=== PATIENT | male | born 1955 | race Hispanic/Latino ===

== ENCOUNTER 2020-11-05 16:13 | Inpatient (IN) | payer MEDICARE ==
[~2020-11-05] VITALS: Ht 165.1 cm; Wt 97.4 kg
[2020-11-05] MEDS ORDERED: ONDANSETRON 4MG INJ IV PRN (18:30)
[2020-11-05] MEDS ORDERED: ACETAMINOPHEN 325 MG TAB PO PRN ×2 (18:30)
[2020-11-05] MEDS ORDERED: 0.9%NACL 1000ML 1,000 ML IV SCH (18:30)
[2020-11-05 18:57] LABS: BASOPHILS % (AUTO) 0.4 % (0.0-5.0); EOSINOPHILS % (AUTO) 0.8 % (0.0-8.0); HEMATOCRIT 31.9 % (42-54); LYMPHOCYTES % (AUTO) 15.9 % (21.0-51.0); MEAN CORPUSCULAR HEMOGLOBIN 28.1 pg (27.0-33.0); MEAN CORPUSCULAR HGB CONC 32.9 g/dL (32.0-36.0); MEAN CORPUSCULAR VOLUME 85.3 fL (79-99); MONOCYTES % (AUTO) 8.7 % (3.0-13.0); NEUTROPHILS % (AUTO) 73.8 % (40.0-77.0); PLATELET COUNT (AUTO) 249 K/uL (130-400); RED BLOOD CELL COUNT(AUTO) 3.74 MIL/uL (4.50-6.20); RED CELL DISTRIBUTION WIDTH 14.6 % (11.0-15.5); WHITE BLOOD COUNT (AUTO) 8.4 K/uL (4.8-10.8)
[2020-11-05 19:10] LABS: HEMOGLOBIN A1C 7.6 % (4.0-6.0)
[2020-11-05 19:17] LABS: CRP QUANTITATIVE 217.9 mg/L (0.00-9.0)
[2020-11-05] MEDS: LEVOFLOXACIN 500 MG/D5W 100 ML 100 ML IV SCH (19:54)
[2020-11-05] MEDS: 0.9%NACL 1000ML 1,000 ML IV SCH (19:56)
[2020-11-05 20:01] LABS: ERYTHROCYTE SEDIMENTATION RATE 103 MM/HR (0-20)
[2020-11-05] MEDS: FAMOTIDINE 20MG VIAL IV SCH (22:03)
[2020-11-05] MEDS: ZOSYN 3.375GM+NS 50ML 50 ML IV SCH (22:03)
[2020-11-06] MEDS: 0.9%NACL 1000ML 1,000 ML IV SCH ×4 (01:50→22:27)
[2020-11-06] MEDS ORDERED: 0.9%NACL 50ML 50 ML IV ONE (06:35)
[2020-11-06] MEDS: ZOSYN 3.375GM+NS 50ML 50 ML IV SCH ×3 (06:46→20:08)
[2020-11-06] MEDS: INSULIN HUMULIN R 100 UNIT/ML 3ML SQ SCH ×4 (07:30→20:08)
[2020-11-06 08:14] LABS: BASOPHILS % (AUTO) 0.3 % (0.0-5.0); EOSINOPHILS % (AUTO) 0.6 % (0.0-8.0); HEMATOCRIT 29.4 % (42-54); LYMPHOCYTES % (AUTO) 12.6 % (21.0-51.0); MEAN CORPUSCULAR HEMOGLOBIN 27.7 pg (27.0-33.0); MEAN CORPUSCULAR HGB CONC 32.7 g/dL (32.0-36.0); MEAN CORPUSCULAR VOLUME 84.7 fL (79-99); MONOCYTES % (AUTO) 10.3 % (3.0-13.0); NEUTROPHILS % (AUTO) 76.1 % (40.0-77.0); PLATELET COUNT (AUTO) 242 K/uL (130-400); RED BLOOD CELL COUNT(AUTO) 3.47 MIL/uL (4.50-6.20); RED CELL DISTRIBUTION WIDTH 14.5 % (11.0-15.5); WHITE BLOOD COUNT (AUTO) 6.7 K/uL (4.8-10.8)
[2020-11-06 08:37] LABS: % IRON SATURATION 14.3 % (30-44)
[2020-11-06 08:40] LABS: ALBUMIN 2.6 g/dL (3.5-5.0); BILIRUBIN,TOTAL 0.4 mg/dL (0.2-1.0); CREATININE 1.1 mg/dL (0.5-1.5); CRP QUANTITATIVE 169.3 mg/L (0.00-9.0); MAGNESIUM 2.1 mg/dL (1.80-2.40); PHOSPHORUS 2.6 mg/dL (2.5-4.9); POTASSIUM 3.7 mmol/L (3.5-5.1); THYROID STIMULATING HORMONE 1.3 uIU/mL (0.36-3.74); TOTAL PROTEIN, SERUM 7.2 g/dL (6.0-8.3)
[2020-11-06] MEDS: ENOXAPARIN SODIUM 30 MG/0.3 ML SQ SCH (09:00)
[2020-11-06 09:30] LABS: ERYTHROCYTE SEDIMENTATION RATE 96 MM/HR (0-20)
[2020-11-06] MEDS: TAMSULOSIN HCL 0.4 MG CAP.ER.24H PO SCH (10:00)
[2020-11-06] MEDS: FAMOTIDINE 20MG VIAL IV SCH ×2 (11:00→20:08)
[2020-11-06] MEDS ORDERED: 0.9%NACL 100ML 100 ML ONE (14:00)
[2020-11-06 14:10] LABS: APPEARANCE,URINE Clear (CLEAR); BILIRUBIN,URINE Negative (NEGATIVE); COLOR,URINE Yellow (YELLOW); GLUCOSE, URINE (UA) 250 mg/dL (NEGATIVE); KETONES,URINE Negative (NEGATIVE); LEUKOCYTE ESTERASE ,URINE Small (NEGATIVE); NITRATE,URINE Negative (NEGATIVE); OCCULT BLOOD,URINE Trace (NEGATIVE); PH,URINE 5.5 (5.0-8.0); PROTEIN,URINE Negative (NEGATIVE)
[2020-11-06 14:28] LABS: BACTERIA,URINE Moderate /HPF (None Seen); SQUAMOUS EPITHELIAL CELL,UR Rare /HPF (0-2)
[2020-11-06] MEDS: LEVOFLOXACIN 500 MG/D5W 100 ML 100 ML IV SCH (18:54)
[2020-11-06] MEDS ORDERED: TAMSULOSIN HCL 0.4 MG CAP.ER.24H PO SCH (21:00)
[2020-11-06] MEDS ORDERED: PIND10TA2 PO (21:30)
[2020-11-06] MEDS ORDERED: DOXA4TAB3 PO (21:30)
[2020-11-06] MEDS ORDERED: GABA-529 PO (21:30)
[2020-11-06] MEDS ORDERED: HUMLIS7525 SQ ×2 (21:30)
[2020-11-06] MEDS ORDERED: OMEP40CA21 PO (21:30)
[2020-11-06] MEDS ORDERED: DUTA0.5C37 PO (21:30)
[2020-11-06] MEDS ORDERED: EVOL140P3 SQ (21:31)
[2020-11-06 21:59] VITALS: BP 110/58
[2020-11-07] MEDS ORDERED: ALPRAZOLAM 0.5 MG TABLET ONE (02:07)
[2020-11-07] MEDS ORDERED: ALPRAZOLAM 0.5 MG TABLET PO ONE (02:30)
[2020-11-07] MEDS: ZOSYN 3.375GM+NS 50ML 50 ML IV SCH (03:37)
[2020-11-07] MEDS: TAMSULOSIN HCL 0.4 MG CAP.ER.24H PO SCH (06:54)
[2020-11-07] MEDS ORDERED: COMPOUND IV MISC 1 EACH IVSOLN MISC PRN (07:30)
[2020-11-07 07:53] LABS: BASOPHILS % (AUTO) 0.4 % (0.0-5.0); EOSINOPHILS % (AUTO) 0.6 % (0.0-8.0); HEMATOCRIT 29.9 % (42-54); MEAN CORPUSCULAR HEMOGLOBIN 27.9 pg (27.0-33.0); MEAN CORPUSCULAR HGB CONC 32.4 g/dL (32.0-36.0); MEAN CORPUSCULAR VOLUME 85.9 fL (79-99); MONOCYTES % (AUTO) 9.6 % (3.0-13.0); NEUTROPHILS % (AUTO) 68.8 % (40.0-77.0); PLATELET COUNT (AUTO) 281 K/uL (130-400); RED BLOOD CELL COUNT(AUTO) 3.48 MIL/uL (4.50-6.20); RED CELL DISTRIBUTION WIDTH 14.7 % (11.0-15.5); WHITE BLOOD COUNT (AUTO) 6.7 K/uL (4.8-10.8)
[2020-11-07 08:04] LABS: CREATININE 1.1 mg/dL (0.5-1.5); POTASSIUM 3.6 mmol/L (3.5-5.1)
[2020-11-07 08:25] VITALS: BP 155/71
[2020-11-07] MEDS ORDERED: PINDOLOL 5 MG TAB PO SCH (09:00)
[2020-11-07] MEDS ORDERED: LEVOFLOXACIN 500 MG TABLET PO SCH (09:00)
[2020-11-07] MEDS ORDERED: DOXAZOSIN MESYLATE 2 MG TABLET PO SCH (09:00)
[2020-11-07] MEDS ORDERED: IRON SUCROSE COMPLEX 300 MG in 0.9%NACL 50ML 50 ML IV SCH (09:00)
[2020-11-07] MEDS ORDERED: GABAPENTIN 100 MG CAPSULE PO SCH (09:00)
[2020-11-07] MEDS ORDERED: **HM** DUTASTERIDE 0.5MG PO SCH (09:00)
[2020-11-07] MEDS ORDERED: EVOLOCUMAB 140 MG SQ SCH (09:00)
[2020-11-07] MEDS: FAMOTIDINE 20MG VIAL IV SCH (10:20)
[2020-11-07] MEDS: ENOXAPARIN SODIUM 30 MG/0.3 ML SQ SCH (10:21)
[2020-11-07] MEDS ORDERED: INSULIN HUMULIN R 100 UNIT/ML 3ML SQ SCH ×2 (11:30)
[2020-11-07 11:55] VITALS: BP 131/63
[2020-11-07] MEDS ORDERED: LEVO750T46 PO ×2 (12:43→12:44)
[2020-11-07] MEDS: 0.9%NACL 1000ML 1,000 ML IV SCH (13:57)
[2020-11-07] MEDS ORDERED: INSULIN GLARGINE 100 UNITS/ML 10 ML VIAL SQ SCH (21:00)
== END 2020-11-07 15:35 | disposition home or self-care (01) | DRG 690 ==
LOC: EDH 16:13 → EDHIP 18:30 → 4AH 11-06 02:12 → EDHIP 11-06 02:36 → 3DH 11-06 21:33
PROVIDERS: ADMIT Internal Medicine; ATTEND Internal Medicine
DX: N39.0 Urinary tract infection, site not specified (principal); R78.81 Bacteremia; Z68.41 Body mass index [BMI] 40.0-44.9, adult; R33.9 Retention of urine, unspecified; B96.89 Other specified bacterial agents as the cause of diseases classified elsewhere; I25.10 Atherosclerotic heart disease of native coronary artery without angina pectoris; E11.9 Type 2 diabetes mellitus without complications; E78.5 Hyperlipidemia, unspecified; D50.9 Iron deficiency anemia, unspecified; I10 Essential (primary) hypertension; N40.1 Benign prostatic hyperplasia with lower urinary tract symptoms; K76.0 Fatty (change of) liver, not elsewhere classified; Z88.8 Allergy status to other drugs, medicaments and biological substances; Z83.3 Family history of diabetes mellitus; T45.0X5A Adverse effect of antiallergic and antiemetic drugs, initial encounter; Y92.89 Other specified places as the place of occurrence of the external cause
CPT/HCPCS: 36415; 74018; 76770; 80048; 80053; 81001; 82948; 83036; 83540; 83550; 83605; 83735; 84100; 84145; 84443; 85025; 85045; 85651; 86140; 87040; 87077; 87088; 87186; G0378; J1650; J1756; J1815; J1956; J2543; J3490; J7030